=== PATIENT | female | born 1985 ===

== ENCOUNTER → 2020-04-02 13:37 | Outpatient (ROUT) | payer OTHER, MEDICAID, SELFPAY ==
[2020-04-04 08:11] LABS: Strep Grp B PCR NEG for Grp B Strep
== END ==
PROVIDERS: Visit Provider Nurse Practitioner Obstetrics & Gynecology
DX: Z36.85 Encounter for antenatal screening for Streptococcus B (principal)
CPT/HCPCS: 87653

== ENCOUNTER → 2020-04-27 14:59 | Outpatient (CLI) | payer OTHER, MEDICAID, SELFPAY ==
[2020-04-28 08:38] LABS: COVID19 Sendout Not Detected (Not Detect)
== END ==
PROVIDERS: Visit Provider Registered Nurse
DX: Z01.812 Encounter for preprocedural laboratory examination (principal)
CPT/HCPCS: 87635

== ENCOUNTER 2020-04-28 19:05 | Outpatient (CLI) | payer OTHER, MEDICAID, SELFPAY ==
--- NOTE | 2020-04-28 19:45 | PM.OBTRLD ---
Visit Information Visit Information Date of evaluation: 04/28/20 Primary OB Provider: Love Kulkarni On-call OB Provider: Shanel Roman Reason for Evaluation: Yes non-stress test and Yes other Comments/Additional reasons for admission: 34YO @ [id number] by LMP and early US desires elective IOL tomorrow, lives remotely from hospital. Here for Wolf balloon placement for cervical ripening. Uncomplicated PN care w/ CNM. Vital Signs Vital Signs: BP 124/69, [id number], T36.3C Temporal PFSH Medical History Anxiety (Acute) Social History marital status: number of children: 3 household members: spouse and children lives independently: Yes caregiver/support person: No housing: house pets and animals: Yes Review of Systems Review of Systems ROS: Yes All systems reviewed with the patient and are negative except as otherwise documented Evaluation Evaluation Baseline heart rate: 150 Variability: Moderate (11-25) monitor accelerations: Present monitor decelerations: Absent Contraction Frequency (minutes): 0 Uterine Contraction Intensity: Mild Category of Tracing: I Cervical dilation (cm): 2 Cervical effacement (%): 50 station: -3 Diagnosis, Plan/Disposition Final Diagnosis (1) Encounter for supervision of other normal , third trimester: Status: Acute Plan/Disposition Plan: Anticipatory guidance given on Wolf balloon ripening overnight out of hospital. Informed consent obtained. Wolf balloon placed manually, inflated w/ 50mL NS and tolerated well by patient. RNST after placement. Return to hospital at 0715 for IOL. OB Disposition: home
== END 2020-04-28 19:55 | disposition home or self-care (01) ==
LOC: OB 05-02 11:35
PROVIDERS: Referring Provider Nurse Practitioner Obstetrics & Gynecology; Visit Provider Nurse Practitioner Obstetrics & Gynecology
DX: Z34.83 Encounter for supervision of other normal pregnancy, third trimester (principal); Z3A.39 39 weeks gestation of pregnancy
CPT/HCPCS: 59025; G0378; G0379

== ENCOUNTER 2020-04-29 07:23 | Inpatient (IN) | payer OTHER, MEDICAID, SELFPAY ==
--- NOTE | 2020-04-29 07:31 | PM.OBHP.1 ---
OB HPI Date/Time Date of admission: 04/29/20 Date Patient Seen: 04/29/20 Time Patient Seen: 07:30 History of Present Condition Chief complaint: maternity : 5 Para: 3 Estimated Date of Delivery: 05/01/20 Estimated Gestational Age (weeks): 39.5 Narrative: Radha Doll is a 34 year old female here for elective IOL. Lives remotely from hospital on [facility]. Wolf balloon placed last night around 6:30pm, came out around 11pm. +FM. No VB or LOF. GBS negative. Uncomplicated PN care w/ CNM. Desires low intervention , but open to epidural if needed. Indications Indication for induction OB: maternal distance History of Present care: good care, initiated at week # (11) and number of visits (10) Dating criteria: LMP confirmed by 1st trimester US Ultrasounds: normal mid trimester US Obstetrical complications: other (anemia) Preadmission Labs Blood type: O (+) positive -: Antibody screen: negative, GBS status: negative, HBsAG: negative and RPR/VDLR: negative -: Rubella: immune HCT: 30.3 HCAB: negative 1 hr GTT: 105 Narrative: HIV, GC/CT testing declined by patient Prior (ies) History: 03/11/11: TAB @ 10 wks 07/20/13: NSVB @ [id number], 7#14oz female, epidural, 1st degree, anemia 07/25/15: NAVB @ 40wks, 8#6oz, male, no meds, PPH & anemia 12/04/17: NSVB @ 40wks, 8#2oz, female, epidural, no complications Evaluation Evaluation Baseline heart rate: 135 Variability: Moderate (11-25) monitor accelerations: Present monitor decelerations: Absent Contraction Frequency (minutes): 0 Category of Tracing: I Cervical dilation (cm): 4 Cervical effacement (%): 60 station: -3 [facility] Medical History (Updated 04/29/20 @ 08:09 by Love Kulkarni CNM) Anxiety (Acute) Vaginal delivery (Inactive) Social History marital status: number of children: 3 household members: spouse and children lives independently: Yes caregiver/support person: No housing: house pets and animals: Yes Meds Home Medications and Allergies Home Medications Medication Instructions Recorded Confirmed Type PNV W-O IRON/FA/CALCIUM/B6/B12 1 tab PO Q DAY #0 07/20/13 History (Folbecal) hydrocodone-acetaminophen 0 tab PO Q6H PRN PRN 04/29/20 04/29/20 History Allergies Allergy/AdvReac Type Severity Reaction Status Date / Time acetaminophen Allergy Unknown Unverified 04/27/20 15:34 oxycodone Allergy Unknown Unverified 04/27/20 15:34 Review of Systems Review of Systems ROS: Yes All systems reviewed with the patient and are negative except as otherwise documented Exam Uterus Location (Fundal Height): 38 Presentation: vertex Assessment and Plan Assessment and Plan Assessment and Plan narrative: Admit, routine orders w/ CBC and T&S. Continuous EFM. GBS prophylaxis not indicated. Plan pitocin, per protocol. Encourage upright positions. Reassess once regular contractions are established. Will consider AROM at that time. PB Back-up, notified of patient admit status and POC. Time Spent with Patient Total time spent with greater than 50% in coordination of care (as documented) at patient's floor/unit and/or counseling patient:: 15-24 minutes
[2020-04-29] MEDS: OXYTOCIN PREMIX 30 UNIT/500 ML PLAST..BAG IV (08:03)
[2020-04-29] MEDS: LACTATED RINGERS 1,000 ML 100 ML IV ×3 (08:03→18:25)
[2020-04-29 08:47] LABS: Add Manual Diff / Slide Review NO; Basophils Absolute Auto 100 /uL (0-100); Basophils Percent Auto 0.5 % (0-2); Eosinophils Absolute Auto 0 /uL (0-450); Eosinophils Percent Auto 0.3 % (2-4); Hematocrit 31.5 % (36-46); Hemoglobin 11.1 g/dL (12.0-16.0); Lymphocytes Absolute Auto 2600 /uL (1100-4500); Lymphocytes Percent Auto 24.7 % (25-40); Mean Corpuscular HGB Conc 35.2 % (30-36); Mean Corpuscular Hemoglobin 31.1 PG (26-34); Mean Corpuscular Volume 88.4 fL (80-100); Monocytes Absolute Auto 500 /uL (0-900); Monocytes Percent Auto 4.2 % (3-14); Neutrophils Absolute Auto 7500 /uL (1500-7000); Neutrophils Percent Auto 70.3 % (50-75); Platelet Count 207 X10^3/uL (150-400); Red Blood Cell Count 3.56 X10^6/uL (4.0-5.2); Red Cell Distribution Width 14.3 % (11.6-14.8); White Blood Cell Count 10.7 X10^3/uL (4.5-11.0)
--- NOTE | 2020-04-29 12:04 | PM.OBPNLAB ---
Date/Time Date Patient Seen: 04/29/20 Time Patient Seen: 11:30 Pain Control Pain control: tolerating well Comments: feeling mild contractions. Sitting on ball. No VB or LOF. Pelvic Exam Dilation (cm): 4 Effacement (%): 60 station: -3 Amniotic membrane status: Intact Contractions Date/Time contractions began: 0840 Contractions on admission: irregular Monitor mode: External Pitocin rate (mU/min): 8 Contraction frequency (min): 4 Contraction duration (min): 1 Contraction pattern: Irregular Contraction intensity: Mild Status status: Category l Heart Rate Baseline: 125 Monitor Accelerations: Present Monitor Decelerations: Absent Monitor Variability: Moderate Assessment and Plan Assessment: induction ongoing Plan: continuous present management Comments: Too high for AROM. Will reassess after 1-2 hours of stronger contractions.
--- NOTE | 2020-04-29 16:01 | PM.OBPNLAB ---
Date/Time Date Patient Seen: 04/29/20 Time Patient Seen: 15:25 Pain Control Pain control: tolerating well Pelvic Exam Dilation (cm): 5 Effacement (%): 75 station: -2 Amniotic membrane status: Intact Contractions Date/Time contractions began: 0840 Contractions on admission: irregular Monitor mode: External Pitocin rate (mU/min): 18 Contraction frequency (min): 4 Contraction duration (min): 1 Contraction pattern: Irregular Contraction intensity: Mild Status status: Category l Heart Rate Baseline: 125 Monitor Accelerations: Present Monitor Decelerations: Absent Monitor Variability: Moderate Assessment and Plan Assessment: active labor and induction ongoing Comments: Recommend AROM at this time. Pt consented and AROM performed for moderate amount of clear fluid. Anticipate more rapid progression and likely decreasing the pitocin. Continuous labor support. Reassess in 4 hours or sooner, PRN.
--- NOTE | 2020-04-29 18:58 | PM.OBPRVD ---
Events: Labor Induction Labor & Delivery Delivery date: 04/29/20 Intrapartal events: Abruptio Placenta Cervical ripening method: per Wolf bulb protocol Induction method: per pitocin protocol Delivery augmentation: rupture of membranes Delivery monitor: external FHT and external uterine Route of delivery: L&D Laceration Description: None Estimated blood loss (mL): 558 Anesthesia type: Epidural Narrative: Shortly after epidural placement, patient began to complain of RLQ pain and was re-bolused by anesthesia. FHR deceleration to 70's, slow to increase above 100bpm. Patient was checked and found to be C/C/+2 w/ significant vaginal bleeding. RT and OB were called and pushing was initiated. NSVB of a vigorous baby boy in KATHRYN position w/ no NC and easy delivery of the shoulders. Large clots expelled w/ . [place] was dried lifted to maternal abdomen. Apgars 9/9. RT and OB called off. Remaining 30 units of pitocin in 500mL LR was started at 300mL/hr for AMTSL w/ minimal bleeding. After cessation of pulsation, the cord was double clamped and cut. Gentle cord traction led to spontaneous, Schultze delivery of an apparently intact placenta, membranes and 3VC. Fundus immediately firm and bleeding minimal. Intact vagina and perineum. QBL 558mL. Both mother and baby stable and skin to skin as I left the room. [place] Baby 1: gender: Male Presentation: vertex position: Right Occiput Anterior Placenta delivery description: Spontaneous cord vessel description: 3 Vessels score (1 min): 9 score (5 min): 9 Plan for aftercare: Routine PP orders. Anticipate d/c to home at 18-24 hours.
[2020-04-29 20:05] VITALS: BP 124/69
[2020-04-30] MEDS: IBUPROFEN 600 MG TABLET PO ×3 (00:09→12:30)
--- NOTE | 2020-04-30 11:18 | PM.OBDS.1 ---
Discharge Providers Provider Date of admission: 04/29/20 07:23 Discharge Date: 04/30/20 Primary care physician: Love Kulkarni Consults: 04/30/20 18:48 Consult to Stab Setter And Driller Routine Comment: Discharge provider: Love Kulkarni CNM Summary Hospital Course Date Patient Seen: 04/30/20 Time Patient Seen: 11:00 Procedures: Patient sitting up in bed, her son, eager for d/c to home. Voiding and ambulating independently. Tolerating general diet. Vaginal bleeding has decreased, no clots. Pain well controlled w/ PO meds, required hydrocodone once this am. well without difficulty. is presnet and supportive. Peripartum Data Delivery Method: Natural Vaginal Laceration description: None complications: none [place] 1: Gender: Male Disposition of : home Discharge Diagnosis (1) Encounter for full-term uncomplicated delivery: Status: Acute Status at Discharge Cognitive/behavioral status at discharge: oriented and calm Functional status at discharge: independent ambulation Overall status at discharge: patient is progressing back to baseline Time Spent with Patient Time attestation: Total time spent providing and/or coordinating discharge services: Time spent: Less than 30 minutes Objective Labs Result Diagrams: 04/29/20 08:00 Exam Vital Signs (past 8 hours): BP 122/77, HR 97bpm, RR 17, T98.4F Temporal Other: Fundus firm @ U, lochia light. Discharge Plan Discharge Plan Patient Disposition: Home Discharge orders & Medications Prescriptions: New hydrocodone-acetaminophen 5-325 mg Tablet 1 tab PO Q4HR PRN (Reason: Pain, Moderate (4-6)) 6 Days Qty: 10 RF: 0 docusate sodium [DOK] 100 mg Capsule 100 mg PO DAILY 14 Days Qty: 60 RF: 0 ibuprofen 600 mg Tablet 600 mg PO Q6HR PRN (Reason: Pain, Mild (1-3)) 14 Days Qty: 60 RF: 0 Continued PNV W-O IRON/FA/CALCIUM/B6/B12 (Folbecal) 1 tab PO Q DAY 365 Days Qty: 100 RF: 4 Discontinued hydrocodone-acetaminophen 5 MG/325 MG tablet 0 tab PO Q6H PRN PRN (Reason: Pain (Scale Score 1-3)) RF: 0 Follow up/Referrals: [place],Love, CNM [Advanced Purifying Plant Operator] - (Follow-up by [facility] 04/13/20 @ 1000 6 week follow-up appointment 06/11/20 @ [id number]) Diet/Activity/Treatments Diet: Diet as Tolerated Diet comment: return to normal Activity: pelvic rest x 6 weeks Skin/Wound/Dressing Care Report to your healthcare provider any signs of infection, such as:: chills, fever, increased pain and unusual drainage Visit Report/Discharge Packet Instructions: DI for Depression Discharge Data Attending Provider: Love Kulkarni Admmirna Date/Time: 04/29/20 07:23
[2020-04-30] MEDS: HYDROCODONE/ACET 5/325 TABLET 1 TAB PO (12:30)
== END 2020-04-30 14:30 | disposition home or self-care (01) | DRG 560 ==
PROVIDERS: Admitting Provider Nurse Practitioner Obstetrics & Gynecology; Referring Provider Nurse Practitioner Obstetrics & Gynecology; Visit Provider Nurse Practitioner Obstetrics & Gynecology
DX: O45.93 Premature separation of placenta, unspecified, third trimester (principal); Z3A.39 39 weeks gestation of pregnancy; Z37.0 Single live birth
CPT/HCPCS: 01967; 59025; 59050; 85025; 86850; 86900; 86901; G0378; G0379; J2590

== ENCOUNTER 2023-03-03 05:42 | Outpatient (CLI) | payer OTHER, MEDICAID, SELFPAY ==
--- NOTE | 2023-03-03 06:16 | P.TNLD_ITS ---
Visit Information Visit Information Date of evaluation: 03/03/23 Primary OB Provider: Betsy Arrieta On-call OB Provider: Betsy Arrieta Reason for Evaluation: Yes non-stress test and Yes other Comments/Additional reasons for admission: Radha called at 0250 to report vaginal bleeding without pain. Unable to feel baby moving at the time, so went to ED on [facility]. There, FHR was 150 by doppler. Was flown over on fixed wing to after refusing to be flown to [facility]. At ED, refused cervical exam. Now, continues to report no pain and vaginal bleeding has stopped. Now having painful contractions q 5-6 minutes. Baby now moving a lot. Vital Signs Vital Signs: BP 122/77 Temp 36.2 C SpO2 98% HR: 104 bpm [facility] Medical History Anemia affecting fifth Anxiety Encounter for full-term uncomplicated delivery Encounter for supervision of other normal , third trimester Vaginal delivery Family History (Updated 03/03/23 @ 06:35 by Betsy Arrieta CNM, JIMI) Other Blood clotting disorder Cancer Depression Diabetes mellitus Lung disease Social History (Updated 03/03/23 @ 06:35 by Betsy Arrieta CNM, JIMI) marital status: number of children: 4 household members: spouse and children lives independently: Yes caregiver/support person: No housing: house pets and animals: Yes do you feel safe at home: Yes Smoking Status: Former smoker Review of Systems Review of Systems Narrative: All normal except as mentioned above Gastrointestinal Comments: Contractions Genitourinary Genitourinary: Reports abnormal vaginal bleeding Comments: Bleeding noted at 0250 when Radha felt a gush. When she arrived to at 0600, took pad off due to no bleeding at all. Exam GI Inspection: normal to inspection Palpation: soft Other: Contractions palpate mild to moderate Presentation: vertex Estimated Weight (lbs): 7 Other: No vaginal bleeding at this time. Pad inspected: scant brown spot noted. Neuro General: patient oriented x3 Extrem General: normal to inspection and full ROM Psych Appearance: grossly normal Evaluation Evaluation Baseline heart rate: 145 Variability: Moderate (11-25) monitor accelerations: Present Monitor Decelerations: Absent Uterine Contraction Intensity: Mild Category of Tracing: Reactive Comments: Contractions q 4-7 min x 60 seconds Diagnosis, Plan/Disposition Final Diagnosis (1) Supervision of normal in third trimester: Status: Acute Problem details: 39w6d (2) Vaginal bleeding during , antepartum: Status: Acute Problem details: Short bleeding episode without pain. Plan/Disposition Plan: [place] Reveiw warning signs and when to call CNM for concerns or labor.
[2023-03-03] MEDS: CALCIUM CARBONATE 500 MG TAB 1000 MG PO (06:26)
== END 2023-03-03 07:35 | disposition home or self-care (01) ==
LOC: LABOR 05:57 → OB 03-08 15:23
PROVIDERS: PCP Family Medicine; Referring Provider Advanced Practice Midwife; Visit Provider Advanced Practice Midwife
DX: O46.93 Antepartum hemorrhage, unspecified, third trimester (principal); Z3A.39 39 weeks gestation of pregnancy
CPT/HCPCS: 59025; 59050; G0378; G0379

== ENCOUNTER 2023-03-05 07:19 | Inpatient (IN) | payer OTHER, MEDICAID, SELFPAY ==
--- NOTE | 2023-03-05 07:31 | PM.OBHP.1 ---
OB HPI Date/Time Date of admission: 03/05/23 Date Patient Seen: 03/05/23 Time Patient Seen: 07:31 History of Present Condition Chief complaint: induction : 7 Para: 4 Estimated Date of Delivery: 03/05/23 Estimated Gestational Age (weeks): 40.0 Narrative: Radha Doll is a 37 year old female at 40w0d gestation based on sure LMP and concordant with 1st trimester US. Here for an elective IOL d/t maternal discomfort and distance from the hospital. [place] last night, but able to sleep through the night. Planning an epidural, currently coping well with contraction. Would like to avoid Pitocin. No leaking of fluid. Spotting after CE yesterday, but no continued bleeding. +FM. Uncomplicated care with CNM. Accompanied by supportive . Indications Indication for induction OB: maternal discomfort and maternal distance History of Present care: good care, initiated at week # (11), number of visits (11) and pounds weight gain (18) Dating criteria: LMP confirmed by 1st trimester US Ultrasounds: normal mid trimester US Obstetrical complications: none Medical complications: none Preadmission Labs Blood type: O (+) positive -: Antibody screen: negative, GBS status: negative, HBsAG: negative, HIV: negative and RPR/VDLR: negative -: Chlamydia screen: not detected and Gonorrhea screen: not detected -: Rubella: immune and Varicella: immune HCT: 33.7 HCAB: negative 1 hr GTT: 77 Prior (ies) History: Term NSVB x 4 (abruption w/ P4). TAB x1. SAB x1. Evaluation Evaluation Baseline heart rate: 130 Variability: Moderate (11-25) monitor accelerations: Present Monitor Decelerations: Absent Contraction Frequency (minutes): 5 Uterine Contraction Intensity: Mild Status: Category l Dilation (cm): 4 Effacement (%): 60 Dilation: 3-4 cm Effacement: 60-70% station: -1 Position of cervix: posterior Consistency: soft Carpenter score: 8 PFSH Medical History Anemia affecting fifth Anxiety Encounter for full-term uncomplicated delivery Encounter for supervision of other normal , third trimester Vaginal delivery Family History Other Blood clotting disorder Cancer Depression Diabetes mellitus Lung disease Social History marital status: number of children: 4 household members: spouse and children lives independently: Yes caregiver/support person: No housing: house pets and animals: Yes do you feel safe at home: Yes Smoking Status: Former smoker Meds Home Medications and Allergies Home Medications Medication Instructions Recorded Confirmed Type PNV W-O IRON/FA/CALCIUM/B6/B12 1 tab PO Q DAY 365 days #100 tabs 04/30/20 04/29/20 Rx (Folbecal) Allergies Allergy/AdvReac Type Severity Reaction Status Date / Time No Known Drug Allergies Allergy Verified 04/29/20 20:05 Review of Systems Review of Systems ROS: Yes All systems reviewed with the patient and are negative except as otherwise documented OB Exam Vital signs Blood Pressure: 131/82 Pulse Rate: 84 Respiratory Rate: 16 Temperature: 96.6 F Resp Effort & Inspection: normal respiratory effort, able to speak in complete sentences and symmetric chest movement Auscultation: clear to auscultation bilaterally Cardio Rate: regular rate Rhythm: regular rhythm Heart Sounds: S1 normal and S2 normal Extremities Lower extremity: Yes normal to inspection Presentation: vertex Objective Labs 03/05/23 08:35 Assessment and Plan Assessment and Plan Assessment and Plan narrative: A:Term multipara GBS prophylaxis not indicated Rhogam not indicated Anemia in Favorable for elective induction CAT 1 FHR P: Admit, routine labor orders. IOL consent signed and AROM performed during exam for clear fluid. May switch to intermittent auscultation. Epidural when requested. Reassess in 4 hours or sooner, PRN. Will consider pitocin augmentation if no spontaneous labor within 4-6 hours.
[2023-03-05 08:25] VITALS: BP 131/82; PULSE 84; RESP 16; TEMP 35.9
[2023-03-05 08:48] LABS: Add Manual Diff / Slide Review NO; Basophils Absolute Auto 200 /uL (0-100); Basophils Percent Auto 1.1 % (0-2); Eosinophils Absolute Auto 0 /uL (0-450); Eosinophils Percent Auto 0.3 % (2-4); Hematocrit 33.7 % (36-46); Hemoglobin 11.3 g/dL (12.0-16.0); Lymphocytes Absolute Auto 3200 /uL (1100-4500); Lymphocytes Percent Auto 24.5 % (25-40); Mean Corpuscular HGB Conc 33.5 % (30-36); Mean Corpuscular Volume 86.3 fL (80-100); Monocytes Absolute Auto 800 /uL (0-900); Monocytes Percent Auto 6.4 % (3-14); Neutrophils Absolute Auto 8900 /uL (1500-7000); Neutrophils Percent Auto 67.7 % (50-75); Platelet Count 181 X10^3/uL (150-400); Red Cell Distribution Width 14.1 % (11.6-14.8); White Blood Cell Count 13.2 X10^3/uL (4.5-11.0)
[2023-03-05] MEDS: FENT 2MCG/ML BUPIV 0.125% EPI 200 MCG/100 ML PLAST..BAG 6 MCG EPIDURAL (10:50)
[2023-03-05] MEDS: OXYTOCIN PREMIX 30 UNIT/500 ML PLAST..BAG 200 UNIT IV (11:21)
[2023-03-05] MEDS: METHYLERGONOVINE 0.2 MG/ML VIAL IM (11:45)
--- NOTE | 2023-03-05 11:45 | P.PCNOB_ITS ---
Events: Labor Induction and Other (AROM induction) Labor & Delivery Delivery date: 03/05/23 Intrapartal Events: Precipitous Labor < 3 hours Cervical ripening method: none Induction method: AROM Delivery monitor: external FHT and external uterine Route of delivery: Episiotomy description: None L&D Laceration Description: Periurethral - 1st Degree Quantitative Blood Loss: 618 Anesthesia Type: Epidural (Given at 8-9cm only took the edge off per patient. ) Narrative: Radha is a G7 now P5 at 40w0d who came in for elective IOL related to [place] living. Was eric overnight, but able to sleep. AROM at 07:30 with clear fluid led to active labor without other interventions. Coped well using movement, breathing, hydrotherapy in the tub. [place] urge to defecate and got out of the tub. Pain intensified and Radha requested an epidural. CE 8- 9/100%/0/anterior/soft. Anesthesia quickly placed epidural, but d/t fast labor pain control was minimal. She labored and pushed on her left side, delivering a vigorous baby girl OA, shoulders easily delivered through loose bandolier of cord. Cord clamped and cut by FOB once pulsing ceased. Placenta delivered Schultze, apparently intact, fundus firm @U. QBL 618mL. IV Pitocin started prior to placental delivery and IM Methergine given as CNM left the room d/t trickle of blood and difficulty with fundal massage due to extreme tenderness as a multip. 1st periuretheral laceration, hemostatic, well approximated. Skid patel noted on R sulcus and perineum. IM Toradol given for pain. Radha and Binh are thrilled to meet their daughter, Jackie. [place] Baby 1: gender: Female Presentation: vertex Position: Right Occiput Anterior Placenta delivery description: Spontaneous and Normal Configuration Cord Vessel Description: 3 Vessels, Clamped/Cut and Around Body x1 score (1 min): 9 score (5 min): 9 Plan for aftercare: Routine care
[2023-03-05] MEDS: LACTATED RINGERS 1,000 ML 100 ML IV (11:46)
[2023-03-05] MEDS: ACETAMINOPHEN 325 MG TABLET 650 MG PO ×2 (12:21→18:40)
[2023-03-05] MEDS: DERMOPLAST SPRAY 20% 60 ML 1 SPRAY TOP (12:22)
[2023-03-05] MEDS: KETOROLAC 30 MG/ML VIAL IV (12:22)
[2023-03-05] MEDS: IBUPROFEN 600 MG TABLET PO (18:40)
[2023-03-05] MEDS: OXYCODONE IR 5 MG TABLET PO (22:47)
[2023-03-06] MEDS: ACETAMINOPHEN 325 MG TABLET 650 MG PO ×2 (00:24→06:32)
[2023-03-06] MEDS: IBUPROFEN 600 MG TABLET PO ×2 (00:24→06:31)
[2023-03-06] MEDS: OXYCODONE IR 5 MG TABLET PO ×2 (03:31→09:01)
[2023-03-06] MEDS: DOCUSATE 100 MG CAPSULE PO (09:01)
--- NOTE | 2023-03-06 09:20 | PM.OBDS.1 ---
Discharge Providers Provider Date of admission: 03/05/23 07:19 Discharge Date: 03/06/23 Primary care physician: Estiven Roy MD Consults: 03/06/23 11:33 Consult to Catering Driver Routine Comment: Discharge provider: Love Cisneros CNM Summary Hospital Course Date Patient Seen: 03/06/23 Time Patient Seen: 09:23 Diagnoses: O80 Hospital Course: PPD1: Stable s/p elective IOL for maternal discomfort and distance resulting in a rapid labor and NSVB. Voiding, ambulating and independently. Tolerating a general diet. Pain well controlled with PO medication. Vaginal bleeding is decreasing and without clots. Eager for discharge to home this morning. Peripartum Data Delivery Method: Natural Vaginal Laceration Description: None Episiotomy description: None Procedures: O80 complications: none 1: Gender: Female Disposition of : home Discharge Diagnosis (1) Encounter for full-term uncomplicated delivery: Start Date: 03/05/23 Status: Acute Problem Details: routine course Status at Discharge Cognitive/behavioral status at discharge: oriented and calm Functional status at discharge: independent ambulation Overall status at discharge: patient is progressing back to baseline Time Spent with Patient Time attestation: Total time spent providing and/or coordinating discharge services: Objective Labs 03/05/23 08:35 Labs: Laboratory Results - last 24 hr 03/05/23 08:35 Blood Type O Positive Antibody Screen Negative Exam Vital Signs (past 8 hours): BP 110/62, HR 70bpm, RR 16/min, T 98.0 F Axillary Other: Fundus firm @ u, lochia scant, no clots. Perineum intact. Discharge Plan Discharge Plan Patient Disposition: Home Discharge orders & Medications Prescriptions: New ibuprofen 600 mg Tablet 600 mg PO Q6HR PRN (Reason: Pain, Mild (1-3)) 14 Days Qty: 60 0RF Continued PNV W-O IRON/FA/CALCIUM/B6/B12 (Folbecal) 1 tab PO Q DAY 365 Days Qty: 100 4RF Follow up/Referrals: Estiven Roy MD [Primary Care Provider] - Love Cisneros CNM [Advanced Pressure Controller] - (Follow-up with CNMs as scheduled at 2wks and 6 wks ) Diet/Activity/Treatments Diet: Regular Activity: pelvic rest x 4-6 weeks Skin/Wound/Dressing Care Report to your healthcare provider any signs of infection, such as:: chills, fever, increased pain, unusual drainage and unusual redness Visit Report/Discharge Packet Instructions: DI for Depression Stand Alone Forms: Patient Portal/API, Stroke Signs & Symptoms Discharge Data Primary Care Provider: Estiven Roy
[2023-03-06 10:43] VITALS: BP 110/62; PULSE 70; RESP 15; TEMP 36.7
== END 2023-03-06 10:50 | disposition home or self-care (01) | DRG 560 ==
PROVIDERS: Admitting Provider Nurse Practitioner Obstetrics & Gynecology; PCP Family Medicine; Referring Provider Nurse Practitioner Obstetrics & Gynecology; Visit Provider Nurse Practitioner Obstetrics & Gynecology
DX: O62.3 Precipitate labor (principal); Z3A.40 40 weeks gestation of pregnancy; Z37.0 Single live birth; O99.02 Anemia complicating childbirth
CPT/HCPCS: 36415; 59050; 85025; 86850; 86900; 86901; G0379; J1885; J2210; J2590

== ENCOUNTER 2025-03-15 07:19 | Inpatient (IN) | payer OTHER, SELFPAY ==
--- NOTE | 2025-03-15 08:21 | P.HPOB_ITS ---
OB HPI Date/Time Date of admission: 03/15/25 Date Patient Seen: 03/15/25 Time Patient Seen: 08:00 History of Present Condition Chief complaint: OBS : 8 Para: 5 Estimated Date of Delivery: 03/16/25 Estimated Gestational Age (weeks): 39.6 Narrative: Radha Doll is a 39 year old female by LMP concordant with 9wk US presents for elective IOL. Started eric overnight, feeling moderate, irregular contractions. Lives on [facility] and prefers IOL for hx of rapid after ROM. Prefers AROM only for her IOL. Considering an epidural sooner, rather than later. Uncomplicated care with CNMs. Velamentous cord insertion noted with reassuring growth (37wk EFW 3164grams/55th%) and testing. is present and supportive. Indications Indication for induction OB: maternal distance and history of rapid labor History of Present care: good care, initiated at week # (9), number of visits (10) and pounds weight gain (16.8) Dating criteria: LMP confirmed by 1st trimester US Ultrasounds: normal 1st trimester US, normal mid trimester US and abnormal US findings (Velamentous and marginal cord insertion, low lying placenta (resolved at 27wks)) Obstetrical complications: none Medical complications: other (anemia- on iron supplementation) Preadmission Labs Blood type: O (+) positive -: Antibody screen: negative, GBS status: negative, HBsAG: negative, HIV: negative and RPR/VDLR: negative -: Chlamydia screen: not detected and Gonorrhea screen: not detected -: Rubella: immune and Varicella: immune HCT: 30.7 HCAB: negative PAP: Normal (04/16/2023: NIL/negative) Cell-free DNA: DECLINED 1 hr GTT: 77 Narrative: Prior (ies) History: see above Hx # Term Pregnancies: 5 Hx # Pregnancies: 0 Number of Living Children: 5 Multiple births: 0 Spontaneous abortions: 2 Ectopic pregnancies: 0 Elective abortions: 0 Evaluation Evaluation Baseline heart rate: 150 Variability: Moderate (11-25) monitor accelerations: Present Monitor Decelerations: Absent Contraction Frequency (minutes): 5 Uterine Contraction Intensity: Moderate Status: Category l Dilation (cm): 4.5 Effacement (%): 60 Dilation: 3-4 cm Effacement: 60-70% station: -2 Position of cervix: posterior Consistency: soft Carpenter score: 7 PFSH Medical History Encounter for full-term uncomplicated delivery Anemia affecting fifth Encounter for supervision of other normal , third trimester Anxiety Vaginal delivery Family History Other Blood clotting disorder Cancer Depression Diabetes mellitus Lung disease Social History marital status: number of children: 4 household members: spouse and children lives independently: Yes caregiver/support person: No housing: house pets and animals: Yes do you feel safe at home: Yes Meds Home Medications and Allergies Home Medications Medication Instructions Recorded Confirmed Type PNV W-O IRON/FA/CALCIUM/B6/B12 1 tab PO Q DAY 365 days #100 tabs 04/30/20 03/05/23 Rx (Folbecal) Allergies Allergy/AdvReac Type Severity Reaction Status Date / Time No Known Drug Allergies Allergy Verified 04/29/20 20:05 Review of Systems Review of Systems ROS: Yes All systems reviewed with the patient and are negative except as otherwise documented OB Exam Vital signs Blood Pressure: 120/77 Pulse Rate: 87 Temperature: 98.1 F Resp Effort & Inspection: normal respiratory effort and able to speak in complete sentences Auscultation: clear to auscultation bilaterally Cardio Rate: regular rate Rhythm: regular rhythm Heart Sounds: S1 normal and S2 normal Presentation: vertex Objective Labs 03/15/25 08:30 Assessment and Plan Assessment and Plan Assessment and Plan narrative: A: Grand multiparity Term Early labor Anemia, mild Velamentous cord insertion No indication for antibiotics Cat I FHR P: Admit, routine labor orders. Anesthesia consult and epidural when requested. Labor support PRN. AROM once unit staffing allows. Active management of the third stage with low threshold for second medication given increased PPH risk. Reassess in 1-2 hours or sooner, PRN. Time-Based Coding :: [TOTAL MINUTES] spent with patient and on the chart (including review of chart, obtaining history, exam, reviewing outside data, placing orders, documenting exam and treatment plan, and counseling patient) on [DATE].
[2025-03-15 08:42] VITALS: BP 120/77
[2025-03-15 08:45] VITALS: PULSE 87; TEMP 36.7
[2025-03-15 08:48] LABS: Add Manual Diff / Slide Review NO; Basophils Absolute Auto 100 /uL (0-100); Basophils Percent Auto 0.7 % (0-2); Eosinophils Absolute Auto 0 /uL (0-450); Eosinophils Percent Auto 0.3 % (2-4); Hemoglobin 11.4 g/dL (12.0-16.0); Lymphocytes Absolute Auto 2700 /uL (1100-4500); Lymphocytes Percent Auto 24.5 % (25-40); Mean Corpuscular HGB Conc 34.5 % (30-36); Mean Corpuscular Hemoglobin 29.6 PG (26-34); Mean Corpuscular Volume 86.1 fL (80-100); Monocytes Absolute Auto 700 /uL (0-900); Monocytes Percent Auto 6.5 % (3-14); Neutrophils Absolute Auto 7500 /uL (1500-7000); Platelet Count 174 X10^3/uL (150-400); Red Blood Cell Count 3.83 X10^6/uL (4.0-5.2); Red Cell Distribution Width 14.5 % (11.6-14.8)
--- NOTE | 2025-03-15 09:40 | PM.OBPNLAB ---
Date/Time Date Patient Seen: 03/15/25 Time Patient Seen: 09:40 Pain Control Pain control: tolerating well Comments: Ambulating in room while waiting. Feeling rare, mild contractions. Agreeable to AROM. Pelvic Exam Dilation (cm): 5.5 Effacement (%): 60 station: -2 Amniotic membrane status: Ruptured (AROM, light meconium) Contractions Monitor mode: External (intermittent auscultation) Contraction frequency (min): 10 (rare) Contraction intensity: Mild Status status: Category l Heart Rate Baseline: 140 Monitor Accelerations: Present Monitor Decelerations: Absent Monitor Variability: Moderate Assessment and Plan Assessment: induction ongoing Plan: begin patient augmentation Comments: Epidural when requested. Labor support PRN. RT at delivery for meconium stained amniotic fluid. Anticipate NSVB. Reassess in 2-4 hours or sooner, PRN.
[2025-03-15 10:33] VITALS: BP 120/77
--- NOTE | 2025-03-15 13:20 | PM.OBPNLAB ---
Date/Time Date Patient Seen: 03/15/25 Time Patient Seen: 13:20 Pain Control Pain control: tolerating well Comments: Radha is a 39 year old at 39w6d by 9 week ultrasound here for IOL. Having very irregular contractions; has not requested another exam, but might want one if nothing is obviously changing in the next hour or so. Eating and drinking and resting. Desires epidural when things get uncomfortable. VS: 117/70 HR 113 bpm Temp 36.4 C Pelvic Exam Amniotic membrane status: Ruptured (AROM, light meconium) Comments: CE declined. Contractions Date/Time contractions began: Irregular Monitor mode: External (intermittent auscultation) Contraction frequency (min): 10 (rare) Contraction intensity: Mild Status status: Category l Comments: Intermittent auscultation: 134 bpm, no increases or decreases. Assessment and Plan Assessment: induction ongoing Plan: continuous present management Comments: at 39w6d Advanced Maternal Age AROM at 0928 Meconium stained amniotic fluid GBS negative Blood type O positive Velamentous and marginal cord insertion FHR reassuring by doppler Recommend nipple stimulation (pump, hands, shower), walking. Recommend considering another membrane sweep with next exam. Anticipate NSVB.
[2025-03-15] MEDS: LACTATED RINGERS 1,000 ML 100 ML IV ×2 (15:15→16:20)
--- NOTE | 2025-03-15 15:46 | P.PCN_ITS ---
Regional Block Pre-procedure PMH/ROS narrative: active labor PSH/Anesthesia history narrative: 6th delivery ASA Class: II Labs: Hct 33.0 % (36-46) L 03/15/25 08:30 Plt Count 174 X10^3/uL (150-400) 03/15/25 08:30 Medications: Current Medications Generic Name Dose Route Start Last Admin Trade Name Freq PRN Reason Stop Dose Admin Calcium Carbonate 1,000 mg 03/15/25 08:19 Calcium Carbonate 500 Mg Tab PO Q2HR PRN Dyspepsia Carboprost Tromethamine 250 mcg 03/15/25 08:19 Carboprost 250 Mcg/Ml Ampul IM Q90M PRN Bleeding Fentanyl 100 mcg 03/15/25 08:19 Fentanyl 100 Mcg/2 Ml Inj IV Q1H PRN Pain, Severe (7-10) Oxytocin/Lactated Ringer's 30 unit in 500 mls @ 200 mls/hr 03/15/25 08:19 Oxytocin Premix IV CONT PRN Bleeding Protocol Tranexamic Acid 1,000 mg/ 100 mls @ 600 mls/hr 03/15/25 08:19 Sodium Chloride IV NOW PRN Bleeding Oxytocin/Lactated Ringer's 30 unit in 500 mls @ 2 mls/hr 03/15/25 08:30 Oxytocin Premix IV TITRATE SUJEY Protocol 2 MILLIUNIT/MIN Lactated Ringer's 1,000 mls @ 100 mls/hr 03/15/25 08:30 03/15/25 15:15 Lactated Ringers IV 03/15/25 18:29 100 mls/hr CONT SUJEY Administration Lidocaine HCl 20 ml 03/15/25 08:19 Lidocaine 1% 20 Ml INJ INTRA-OP PRN Post Delivery Methylergonovine Maleate 0.2 mg 03/15/25 08:19 Methylergonovine 0.2 Mg Tablet PO Q6HR PRN Heavy Bleeding Methylergonovine Maleate 0.2 mg 03/15/25 08:19 Methylergonovine 0.2 Mg/Ml Vial IM NOW PRN Bleeding Mineral Oil 30 ml 03/15/25 08:19 Mineral Oil 30 Ml Udc TOP PRN PRN Version Misoprostol 800 mcg 03/15/25 08:19 Misoprostol 200 Mcg Tablet KS NOW PRN Bleeding Misoprostol 400 mcg 03/15/25 08:19 Misoprostol 200 Mcg Tablet SL NOW PRN Bleeding Naloxone HCl 0.2 mg 03/15/25 08:19 Naloxone 0.4 Mg/Ml Vial IV Q2MIN PRN Opiate Reversal Ondansetron HCl 4 mg 03/15/25 08:19 Ondansetron 4 Mg/2 Ml Inj IV Q4HR PRN Nausea And Vomiting Oxytocin 10 unit 03/15/25 08:19 Oxytocin 10 Unit/Ml Vial IM NOW PRN Bleeding Allergies: Allergies Allergy/AdvReac Type Severity Reaction Status Date / Time No Known Drug Allergies Allergy Verified 04/29/20 20:05 --: pt in sitting position. drape and prep with sterile technique. L3 L4 interspace identified. large lower back tattoo with black, sharma shading, and some red pigment. localized with lido 1% 3 cc. coring needle through the local needle site. tuohy advanced and LUNA achieved with saline. 27 g pencil point needle used to achieve DPE. CSF returned and spinal needle removed. epidural catheter advanced to 15cm. Procedure Insertion date: 03/15/25 Insertion time: 15:24 Prep/Local: betadine x3 (chloraprep) and 1% lidocaine Interspace: l3 l4 Patient position: sitting Needle: 18 gauge Dajuan Loss of resistance with: saline LUNA at (cm): 7 Catheter placed at SKIN (cm): 15 Sensory level: t8 Initial Medications TEST DOSE time: 15:24 BOLUS DOSE time: 15:29 BOLUS DOSE (mL): 5 BOLUS DOSE med: other (infusate) Infusion INFUSION: 0.125% bupivacaine and with fentanyl 2 mcg/mL Initial rate (mL/hr): 10 Post-procedure Anesthesia date START: 03/15/25 Anesthesia time START: 15:15 Anesthesia date END: 03/15/25 Anesthesia time END: 17:29 Post-procedure Anesthesia Assessment: Yes CV function: HR/BP stable, Yes Resp function: RR/sat/airway adequate, Yes Post-op hydration adequate, Yes Pain cont rol adequate, Yes Nausea & vomiting absent, Yes Temperature > 36 C and Yes Mental status appropriate
--- NOTE | 2025-03-15 15:50 | PM.OBPNLAB ---
Date/Time Date Patient Seen: 03/15/25 Time Patient Seen: 15:50 Pain Control Pain control: epidural Comments: Radha began to have strong painful contractions at 1450, requested epidural. Epidual placed at 1525. Contractions becoming less painful. VS; 111/70 P-71, 100% O2 sat, temp 36.8C Pelvic Exam Dilation (cm): 5 Effacement (%): 60 station: -2 Amniotic membrane status: Ruptured (AROM, light meconium) Contractions Monitor mode: External (intermittent auscultation) Contraction frequency (min): 2 (2-4) Contraction duration (min): 1 (1-2.5) Contraction intensity: Strong/Firm Status status: Category l Heart Rate Baseline: 135 Monitor Accelerations: Present Monitor Decelerations: Absent Monitor Variability: Moderate Assessment and Plan Assessment: active labor Comments: Assessment: 39yo at 39w 6d IOL for AMA GBS negative Velamentous and marginal cord insertion Active labor Cat I FHR tracing P: Epidural placement Reassess in two hours or as needed. Anticipate vaginal delivery
--- NOTE | 2025-03-15 18:23 | PM.OBPRVD ---
Events: Labor Induction Labor & Delivery Delivery date: 03/15/25 Delivery Time: 17:21 Intrapartal Events: Precipitous Labor < 3 hours Cervical ripening method: none Induction method: AROM Delivery monitor: external FHT and external uterine Route of delivery: Indication for instrumentation: nonreassuring FHR tracing Episiotomy description: None L&D Laceration Description: None Quantitative Blood Loss: 159 Anesthesia Type: Epidural Complications: Epidural not effective for pain relief despite multiple boluses and adjustment of the catheter. Severe pain in right hip improved but did not resolve. For next delivery would recommend considering higher dose than usual and starting on hip and not flat. Narrative: Labor progressed rapidly, severe right hip pain after epidural placed. Minimal relief despite catheter repositioning and bolus x 2. Not feeling urge to push due to pain so offered CE prior to replacing the epidural, and found to be complete. Pushed effectively for two contractions. FHR was Cat I throughout labor and 2nd stage. NSVB of baby at girl in KATHRYN position, shoulders delivered easily with no additional maneuvers. Baby was placed on maternal abdomen when she was ready to receive her. Apgars 7/9. Pitocin started per AWHONN protocol for AMTSL. They remained skin to skin while cord was cut and placenta was delivered. Placenta delivered spontaneously, side presenting, with maternal efforts and appeared to be intact. 3 vessel cord clamped and cut by CNM at minutes of life after cord pulsing had stopped. Cord blood collected for blood typing. Perineum inspected and found to be intact. Blood loss measured and estimated loss is 159 mL. Mom and baby left stable and is being initiated. They are thrilled to meet their daughter, Gabbi. Betsy KRAUSE, ULI, IBCLC Baby 1: gender: Female Presentation: vertex Position: Right Occiput Anterior Placenta delivery description: Spontaneous (marginal insertion and velamentous insertion) Cord Vessel Description: 3 Vessels score (1 min): 7 score (5 min): 9 weight: 3799 kg Plan for aftercare: Routine care
[2025-03-15] MEDS: KETOROLAC 30 MG/ML VIAL IV (20:19)
[2025-03-15] MEDS: ACETAMINOPHEN 325 MG TABLET 650 MG PO (20:20)
[2025-03-16] MEDS: IBUPROFEN 600 MG TABLET PO ×3 (02:51→15:15)
[2025-03-16] MEDS: ACETAMINOPHEN 325 MG TABLET 650 MG PO ×3 (02:52→15:15)
[2025-03-16] MEDS: OXYCODONE IR 5 MG TABLET PO ×3 (05:32→15:15)
--- NOTE | 2025-03-16 12:31 | PM.OBDS.1 ---
Discharge Providers Provider Date of admission: 03/15/25 07:19 Discharge Date: 03/16/25 Primary care physician: Estiven Roy MD Consults: 03/16/25 18:27 Consult to Cement[employer] Routine Comment: Discharge provider: Betsy Arrieta CNM, ARNP Summary Hospital Course Date Patient Seen: 03/16/25 Time Patient Seen: 12:00 Diagnoses: Term NSVB Hospital Course: Admtted for IOL r/to AMA. AROM and patience resulted in spontaneous labor and NSVB of viable girl. She is having severe uterine cramping that worsens with breast feeding. Taking ibuprofen and oxycodone with good relief. Minimal bleeding. Breast feeding without difficultly. Urinating with difficultly. Eager to go home and see her other children. Peripartum Data Delivery Method: Natural Vaginal Laceration Description: None Episiotomy description: None [place] 1: Gender: Female Disposition of : home Discharge Diagnosis (1) Encounter for full-term uncomplicated delivery: Start Date: 03/15/25 Start Time: 17:21 Status: Acute Problem Details: routine course (2) Supervision of normal in third trimester: Status: Acute Problem Details: 39w6d Status at Discharge Cognitive/behavioral status at discharge: oriented Functional status at discharge: independent ambulation Time Spent with Patient Time attestation: Total time spent providing and/or coordinating discharge services: Objective Labs 03/15/25 08:30 Exam Vital Signs (past 8 hours): BP 119/75 RR18 Pulse-74 temp 97.7F Const General: cooperative, healthy appearing and comfortable Other: Fundus firm at U, midline. Lochia light Perineum intact with minimal edema Discharge Plan Discharge Plan Patient Disposition: Home Discharge orders & Medications Prescriptions: Continued PNV W-O IRON/FA/CALCIUM/B6/B12 (Folbecal) 1 tab PO Q DAY 365 Days Qty: 100 4RF Medication counseling provided by Pharmacist: No Follow up/Referrals: Estiven Roy MD [Primary Care Provider] - Betsy Arrieta CNM, JIMI [[facility]] - 2 Weeks (and 6 weeks as scheduled.) Diet/Activity/Treatments Diet: Diet as Tolerated Diet comment: increase fiber and fluid for healing Activity: low pruett x 2 weeks Skin/Wound/Dressing Care Skin care: usual care Report to your healthcare provider any signs of infection, such as:: chills, fever, unusual drainage and unusual redness Visit Report/Discharge Packet Instructions: DI for Depression Stand Alone Forms: Patient Portal/API, Stroke Signs & Symptoms Discharge Data Primary Care Provider: Estiven Roy
== END 2025-03-16 15:20 | disposition home or self-care (01) | DRG 560 ==
PROVIDERS: Nurse Practitioner Obstetrics & Gynecology; Admitting Provider Advanced Practice Midwife; PCP Family Medicine; Referring Provider Advanced Practice Midwife; Visit Provider Advanced Practice Midwife
DX: O62.3 Precipitate labor (principal); Z3A.39 39 weeks gestation of pregnancy; Z37.0 Single live birth; O76 Abnormality in fetal heart rate and rhythm complicating labor and delivery; O43.123 Velamentous insertion of umbilical cord, third trimester; Z67.40 Type O blood, Rh positive; Z83.3 Family history of diabetes mellitus
CPT/HCPCS: 36415; 59050; 85025; 86850; 86900; 86901; G0379; J1885